=== PATIENT | female | born 2000 | race Two or more races ===

== ENCOUNTER → 2019-07-30 | Outpatient (CLI) | payer OTHER | END | disposition home or self-care (01) | LOC: PRENATAL 10:00 | DX: O35.0XX0 Maternal care for (suspected) central nervous system malformation in fetus, not applicable or unspecified (principal); Z36.89 Encounter for other specified antenatal screening ==

== ENCOUNTER 2020-01-01 12:00 | Inpatient (IN) | payer OTHER ==
[~2020-01-01] VITALS: Ht 170.2 cm; Wt 87.5 kg
[2020-01-04] MEDS ORDERED: PRENATAL CAPLE1 EAC1 PO (13:16)
== END 2020-01-06 14:28 | disposition home or self-care (01) | DRG 807 ==
LOC: LDR 01-04 12:09 → OB/GYN 01-04 15:59
PROVIDERS: ADMIT Specialist; ATTEND Specialist
PROC: 10E0XZZ Delivery of Products of Conception, External Approach (ICD-10-PCS; principal; 2020-01-04)
PROC: 0UQGXZZ Repair Vagina, External Approach (ICD-10-PCS; 2020-01-04)
PROC: 4A0HXFZ Measurement of Products of Conception, Cardiac Rhythm, External Approach (ICD-10-PCS; 2020-01-04)
DX: O71.4 Obstetric high vaginal laceration alone (principal); Z37.0 Single live birth; Z3A.39 39 weeks gestation of pregnancy